=== PATIENT | female | born 1965 | race Caucasian/White ===

== ENCOUNTER 2023-12-12 02:50 | Outpatient (CLI) | payer BC, SELFPAY ==
[2023-12-12 13:13] LABS: Abs Immature Grans 0.03 10^3/uL (0.0-0.06); Absolute Basophil Count 0.07 10^3/uL (0.0-0.2); Absolute Eosinophil Count 0.16 10^3/uL (0.0-0.7); Absolute Lymphocyte Count 1.54 10^3/uL (1.2-3.4); Absolute Monocyte Count 0.42 10^3/uL (0.1-0.8); Absolute Neutrophil Count 3.03 10^3/uL (1.2-6.7); Basophils % 1.3; HGB 14.4 g/dL (11.2-15.7); Immature Grans % 0.6; Lymphocytes % 29.3; MCH 30.1 pg (27.0-33.0); MCV 94 fL (80-95); MPV 9.5 fL (8.0-11.0); Neutrophils % 57.8; Platelet Count 288 10^3/uL (130-400); RBC 4.79 10^6/uL (3.93-5.22); RDW 12.7 % (11.7-14.6); RDW-SD 44.2 fL; WBC 5.25 10^3/uL (4.4-10.8)
[2023-12-12 13:26] LABS: Hemoglobin A1C 5.9 % (<5.7)
[2023-12-12 14:10] LABS: ALT 191 U/L (14-59); AST 104 U/L (15-37); Albumin 3.9 g/dL (3.4-5.0); Alkaline Phosphatase 127 U/L (46-116); Anion Gap 10.1 mmol/L (3-11); BUN 16 mg/dL (7-18); Bilirubin, Total 0.5 mg/dL (0.2-1.0); CO2 26.9 mmol/L (21.0-32.0); Calcium 9.2 mg/dL (8.5-10.1); Calculated LDL 204 mg/dL (<100); Chloride 103 mmol/L (98-107); Cholesterol 307 mg/dL (<200); Estimated GFR 66.12 (mL/min/1.73m2); Glucose 100 mg/dL (74-106); HDL Cholesterol 79 mg/dL (40-60); Potassium 4.1 mmol/L (3.5-5.1); Sodium 140 mmol/L (136-145); TSH (W/Ref FT4) 1.36 uIU/mL (0.36-3.74); Total Protein 7.8 g/dL (6.4-8.2); Triglyceride 121 mg/dL (<150); Vitamin B12 735 pg/mL (193-986)
[2023-12-12 14:48] LABS: Vitamin D 25 Total 16.1 ng/mL (30-100)
[2023-12-12 22:12] LABS: HBs Antibody, Quant 135.9 mIU/mL (See Note); Hepatitis B Surface Ab Positive (See Note)
[2023-12-12 22:56] LABS: Hep B Core Antibody Negative (Negative)
[2023-12-12 23:12] LABS: Hep A Total Ab w Rflx IgM Positive (Negative)
[2023-12-15 08:38] LABS: Hep A Antibody IgM Negative (Negative)
== END 2023-12-12 02:51 | disposition home or self-care (01) ==
LOC: LBO 02:50
PROVIDERS: Visit Provider Nurse Practitioner Family
DX: E78.00 Pure hypercholesterolemia, unspecified (principal); I10 Essential (primary) hypertension
CPT/HCPCS: 36415; 80053; 80061; 82306; 86704; 86706; 86709; 82607; 83036; 84443; 85025

== ENCOUNTER 2024-02-05 13:27 | Outpatient (CLI) | payer BC, SELFPAY ==
[2024-02-05 12:52] LABS: ALT 182 U/L (14-59); AST 90 U/L (15-37); Albumin 4.1 g/dL (3.4-5.0); Alkaline Phosphatase 90 U/L (46-116); Bilirubin, Direct 0.1 mg/dL (0.0-0.2); Bilirubin, Total 0.5 mg/dL (0.2-1.0); Lipase 62 U/L (16-77); Total Protein 7.5 g/dL (6.4-8.2)
== END 2024-02-05 13:28 | disposition home or self-care (01) ==
LOC: LBO 13:27
PROVIDERS: Visit Provider Family Medicine
DX: R74.8 Abnormal levels of other serum enzymes (principal)
CPT/HCPCS: 36415; 80076; 83690

== ENCOUNTER 2024-11-30 14:45 | Outpatient (CLI) | payer BC, SELFPAY ==
[2024-11-30 13:51] LABS: ALT 28 U/L (14-59); AST 26 U/L (15-37); Albumin 4.1 g/dL (3.4-5.0); Alkaline Phosphatase 71 U/L (46-116); Anion Gap 6.5 mmol/L (3-11); BUN 17 mg/dL (7-18); Bilirubin, Total 0.32 mg/dL (0.2-1.0); CO2 28.5 mmol/L (21.0-32.0); CREATININE 0.9 mg/dL (0.55-1.02); Calcium 9.2 mg/dL (8.5-10.1); Calculated LDL 140 mg/dL (<100); Chloride 107 mmol/L (98-107); Cholesterol 233 mg/dL (<200); Estimated GFR 75.03 (mL/min/1.73m2); Glucose 91 mg/dL (74-106); HDL Cholesterol 72 mg/dL (>or=50); Potassium 4.7 mmol/L (3.5-5.1); Sodium 142 mmol/L (136-145); TSH 0.96 uIU/mL (0.36-3.74); Total Protein 7.6 g/dL (6.4-8.2); Triglyceride 106 mg/dL (<150)
== END 2024-11-30 14:46 | disposition home or self-care (01) ==
LOC: LBO 14:46
PROVIDERS: Visit Provider Family Medicine
DX: R74.01 Elevation of levels of liver transaminase levels (principal); E78.5 Hyperlipidemia, unspecified; E03.9 Hypothyroidism, unspecified
CPT/HCPCS: 36415; 80053; 80061; 84443

== ENCOUNTER 2025-07-18 03:57 | Outpatient (CLI) | payer BC, SELFPAY ==
[2025-07-18 11:22] LABS: Vitamin D 25 Total 28 ng/mL (30-100)
== END 2025-07-18 03:58 | disposition home or self-care (01) ==
LOC: LBO 03:58
PROVIDERS: PCP Family Medicine; Visit Provider Family Medicine
DX: E78.5 Hyperlipidemia, unspecified (principal); E03.9 Hypothyroidism, unspecified; E55.9 Vitamin D deficiency, unspecified
CPT/HCPCS: 36415; 82306

== ENCOUNTER 2025-09-05 13:56 | Outpatient (CLI) | payer BC, SELFPAY ==
[2025-09-05 15:54] LABS: ALT 28 U/L (10-49); AST 29 U/L (<34); Albumin 4.5 g/dL (3.2-5.0); Alkaline Phosphatase 53 U/L (46-116); Anion Gap 8.6 mmol/L (3-11); BUN 24 mg/dL (9-23); Bilirubin, Total 0.90 mg/dL (0.2-1.2); CO2 28.4 mmol/L (20.0-31.0); Calcium 9.4 mg/dL (8.3-10.6); Chloride 105 mmol/L (98-107); Glucose 87 mg/dL (74-106); Potassium 4.1 mmol/L (3.5-5.1); Sodium 142 mmol/L (136-145); TSH (W/Ref FT4) 6.29 uIU/mL (0.55-4.78); Total Protein 7.1 g/dL (5.7-8.2)
== END 2025-09-05 13:57 | disposition home or self-care (01) ==
LOC: LBO 13:56
PROVIDERS: PCP Family Medicine; Visit Provider Nurse Practitioner Family
DX: E03.9 Hypothyroidism, unspecified (principal); E66.9 Obesity, unspecified
CPT/HCPCS: 36415; 80053; 84439; 84443